=== PATIENT | female | born 1950 | race Caucasian/White ===

== ENCOUNTER 2017-04-02 13:45 | Outpatient (CLI) | payer MEDICARE | END 2017-04-02 13:46 | disposition home or self-care (01) | LOC: SC 13:45 | PROVIDERS: ATTEND Specialist | DX: R53.83 Other fatigue (principal); R51 Headache; E66.9 Obesity, unspecified | CPT/HCPCS: 99205; G0463; 99212 ==

== ENCOUNTER 2017-04-16 09:19 | Outpatient (CLI) | payer MEDICARE ==
[2017-04-16 18:49] LABS: ALBUMIN/GLOBULIN RATIO 1.3 (1.0-2.2); BILIRUBIN,TOTAL 0.6 mg/dL (0.2-1.0); BUN - BLOOD UREA NITROGEN 25 mg/dL (6-20); CALCIUM 9.4 mg/dL (8.5-10.3); CARBON DIOXIDE - CO2 26 mmol/L (21-32); CHLORIDE 102 mmol/L (101-111); CHOL/HDL RATIO 5.2 (<4.4); CHOLESTEROL 269 mg/dL; CREATININE 0.8 mg/dL (0.4-1.0); GFR - MDRD 72 (>89); GLUCOSE 139 mg/dL (70-100); HDL CHOLESTEROL 52 mg/dL; LDL/HDL RATIO 3.1 (<4.4); POTASSIUM 3.8 mmol/L (3.5-5.0); SODIUM 137 mmol/L (135-145); TOTAL PROTEIN 7.4 g/dL (6.7-8.2); TRIGLYCERIDES 286 mg/dL; VLDL CHOLESTEROL 57 mg/dL
== END 2017-04-16 09:20 | disposition home or self-care (01) ==
LOC: LAB 09:19
PROVIDERS: ATTEND Specialist
DX: K21.9 Gastro-esophageal reflux disease without esophagitis (principal)
CPT/HCPCS: 36415; 80053; 80061; 86803

== ENCOUNTER 2017-05-07 15:06 | Outpatient (CLI) | payer MEDICARE ==
--- NOTE | 2017-05-08 14:21 | DEXA Report ---
REVISED: REPORT ORIGINALLY SIGNED ON 05/08/2017@1515; ORDERS LINKED ON 2016 jll DEXA SCAN: 05/07/2017 CLINICAL INDICATION: Postmenopausal. TECHNIQUE: Dual energy x-ray absorptiometry (DXA) was performed on a [employer] system. Regions measured are the AP spine, femoral neck, and, if needed, forearm. COMPARISON: None. In accordance with the International Society for Clinical Densitometry (ISCD) guidelines, data from previous exams may be reanalyzed using current recommendations and techniques. This is done to allow a more accurate basis for comparison with the current study. FINDINGS HIP DATA: REGION BMD (g/cm/cm) T-SCORE Z-SCORE Neck 0.877 -1.2 -0.3 TOTAL 0.978 -0.2 0.3 NOTE: The femoral neck or total proximal femur, whichever is lowest, is used for classification. FOREARM DATA: REGION BMD (g/cm/cm) T-SCORE Z-SCORE 1/3 0.699 -2.0 -0.6 NOTE: The 33% radius of the nondominant forearm is used for classification. IMPRESSION 1. THE WHO CLASSIFICATION BASED ON THE INTERNATIONAL REFERENCE STANDARD: OSTEOPENIA. FRACTURE RISK: INCREASED. 2. LEFT FOREARM EVALUATION PERFORMED DUE TO HISTORY OF MULTIPLE LUMBAR SPINE FRACTURES PER THE PATIENT. RECOMMENDATION: Patients with diagnosis of osteoporosis or osteopenia should have regular bone mineral density assessment. For those eligible for Medicare, routine testing is allowed once every 2 years. Testing frequency can be increased for patients who have rapidly progressing disease or for those who are receiving medical therapy to restore bone mass. COMMENT: World Health Organization (WHO) definitions for osteoporosis and osteopenia: NORMAL BMD: T-score at -1.0 or higher, fracture risk is low. OSTEOPENIA BMD: T-score between -1.0 and -2.5, fracture risk is increased. OSTEOPOROSIS BMD: T-score at -2.5 or lower, fracture risk high. National Osteoporosis Foundation recommends: 1. Obtain adequate dietary calcium (at least 1200 mg per day) and vitamin D (400 -800 international units per day). 2. Participate, as appropriate, in regular weightbearing and muscle- strengthening exercise. 3. Avoid tobacco use and reduce alcohol and caffeine intake. 4. For more detailed information see the website at www.NOF.org. MTDD
== END 2017-05-07 15:07 | disposition home or self-care (01) ==
LOC: DI 15:06
PROVIDERS: ATTEND Specialist
DX: Z13.820 Encounter for screening for osteoporosis (principal); M85.89 Other specified disorders of bone density and structure, multiple sites; N95.8 Other specified menopausal and perimenopausal disorders
CPT/HCPCS: 77080; 77081

== ENCOUNTER 2017-05-07 15:08 | Outpatient (CLI) | payer MEDICARE ==
--- NOTE | 2017-05-10 16:04 | Mammography Report ---
DIGITAL SCREENING MAMMOGRAM: 05/07/2017 CLINICAL INDICATION: A 67-year-old with family history of breast cancer, history of benign biopsy, fo r screening. COMPARISON: 04/2013, 03/2012, 08/2011, 01/2011, 05/2010, 09/2009, 08/2009. TECHNIQUE: Routine CC and MLO projections were obtained of the breasts. FINDINGS: The breasts again demonstrate fatty replacement bilaterally. Biopsy marker in the right up per outer central breast is stable. Coarse, typically benign calcifications are present. No suspiciou s masses, clustered microcalcifications, or regions of architectural distortion are identified. IMPRESSION: BENIGN FINDINGS. RECOMMENDATION: ROUTINE ANNUAL SCREENING UNLESS OTHERWISE CLINICALLY INDICATED. BIRADS CATEGORY 2-BENIGN FINDINGS. STANDARD QUALIFYING STATEMENTS 1. This examination was reviewed with the aid of Computer-Aided Detection (CAD). 2. A negative or benign imaging report should not delay biopsy if clinically suspicious findings are present. Consider surgical consultation if warranted. More than 5% of cancers are not identified by i maging. 3. Dense breasts may obscure an underlying neoplasm. JOB #: [id number] EXT JOB #:[id number]
== END 2017-05-07 15:09 | disposition home or self-care (01) ==
LOC: DI 15:08
PROVIDERS: ATTEND Specialist
DX: Z12.31 Encounter for screening mammogram for malignant neoplasm of breast (principal); Z80.3 Family history of malignant neoplasm of breast
CPT/HCPCS: 77067

== ENCOUNTER 2017-07-25 22:45 | Outpatient (CLI) | payer MEDICARE | END 2017-07-25 22:46 | disposition home or self-care (01) | LOC: SC 22:45 | PROVIDERS: ATTEND Internal Medicine Pulmonary Disease | DX: G47.33 Obstructive sleep apnea (adult) (pediatric) (principal); R00.0 Tachycardia, unspecified | CPT/HCPCS: 95810 ==

== ENCOUNTER 2017-08-29 09:10 | Outpatient (CLI) | payer MEDICARE | END 2017-08-29 09:11 | disposition home or self-care (01) | LOC: SC 09:10 | PROVIDERS: ATTEND Nurse Practitioner Family | DX: G47.33 Obstructive sleep apnea (adult) (pediatric) (principal); R03.0 Elevated blood-pressure reading, without diagnosis of hypertension; R00.0 Tachycardia, unspecified | CPT/HCPCS: 99214; G0463; 99212 ==

== ENCOUNTER 2017-12-05 09:50 | Outpatient (CLI) | payer MEDICARE | END 2017-12-05 09:51 | disposition home or self-care (01) | LOC: SC 09:50 | PROVIDERS: ATTEND Nurse Practitioner Family | DX: G47.33 Obstructive sleep apnea (adult) (pediatric) (principal); G47.00 Insomnia, unspecified; R03.0 Elevated blood-pressure reading, without diagnosis of hypertension | CPT/HCPCS: 99214; G0463; 99212 ==

== ENCOUNTER 2018-05-22 14:31 | Outpatient (CLI) | payer MEDICARE ==
--- NOTE | 2018-05-23 13:15 | MRI Report ---
Reason: PAIN IN LEFT SHOULDER Procedure Date: 05/22/2018 Accession Number: [id number] / [id number] Procedure: MRI - Shoulder LT W/O CPT Code: FULL RESULT: EXAM: LEFT SHOULDER MRI WITHOUT CONTRAST EXAM DATE: 05/22/2018 03:05 PM. CLINICAL HISTORY: Pain in left shoulder. COMPARISON: None. TECHNIQUE: Multiplanar, multisequence T1-weighted and fluid-sensitive sequences of the shoulder without contrast. Other: None. FINDINGS: Acromioclavicular Region: The acromion is type II. Postsurgical changes of distal clavicle excision. The coracoacromial and coracoclavicular ligaments are intact. Minimal subacromial/subdeltoid bursal fluid. Glenohumeral Region: Minimal superior subluxation of the humeral head. Large joint effusion with synovitis and fluid extending into the subcoracoid region. Diffuse full-thickness cartilage loss with moderate to severe mechanical wear at the articular surfaces and large osteophytes. The glenohumeral ligaments and joint capsule are unremarkable. Bone Marrow: No fracture or bone lesion. Mild reactive edema in the humeral head. Labrum: Diffuse degenerative maceration, most prominent posteriorly. Musculature/Rotator Cuff: Mild supraspinatus tendinopathy. Focal deep partial thickness intrasubstance tear at the insertion posterior fibers extending to the myotendinous junction. Mild infraspinatus tendinopathy with shallow partial-thickness intrasubstance tear at the posterior insertion. Teres minor tendon is intact. Moderate subscapularis tendinopathy with deep partial thickness undersurface tear at the superior insertion. Mild fatty streaking throughout the musculature. No edema. No edema or fatty atrophy. Biceps Tendon: Medial subluxation at the superior aspect of the groove where there is moderate to severe thickening. Large amount of lobulated fluid in the tendon sheath. Other: The subcutaneous soft tissues are unremarkable. IMPRESSION: 1. Severe glenohumeral degenerative change with large joint effusion and synovitis. 2. Degenerative maceration of the labrum. 3. Medial subluxation of the biceps tendon from the bicipital groove with moderate to severe tendinopathy and tenosynovitis. 4. Mild supraspinatus tendinopathy with focal deep partial thickness intrasubstance tear posterior fibers. 5. Mild infraspinatus tendinopathy with shallow partial-thickness intrasubstance tear posterior fibers. 6. Moderate subscapularis tendinopathy with deep partial thickness undersurface tear superior insertion. 7. Postsurgical changes of distal clavicle excision. [facility] MUSCULOSKELETAL RADIOLOGY SECTION
--- NOTE | 2018-05-23 13:15 | CT Report ---
Reason: PAIN IN LEFT SHOULDER Procedure Date: 05/22/2018 Accession Number: [id number] / [id number] Procedure: CT - Upper Extremity Left W/O CPT Code: FULL RESULT: EXAM: LEFT SHOULDER CT WITHOUT CONTRAST EXAM DATE: 05/22/2018 04:27 PM. CLINICAL HISTORY: Pain in left shoulder. COMPARISON: MRI 05/22/2018. TECHNIQUE: Thin-section axial images were acquired of the shoulder without contrast. Post-processing: Oblique coronal and sagittal reformats. Other: None. In accordance with CT protocol optimization, one or more of the following dose reduction techniques were utilized for this exam: automated exposure control, adjustment of mA and/or KV based on patient size, or use of iterative reconstructive technique. FINDINGS: Bones: No acute fracture. Fragmented osteophytes at the posterior superior and posterior inferior glenoid measuring 0.7 cm and 1.3 cm. Acromioclavicular Region: Type II acromion. Postsurgical changes of distal clavicle excision. Glenohumeral Joint: Severe degenerative change with complete joint space loss, large osteophytes, and moderate to severe mechanical wear at the articular surfaces. Mechanical wear at the articular surface of the glenoid results and posterior angulation of the articular surface relative to the scapular spine measuring 12 degrees superiorly, 3 degrees at the mid portion, and 5 degrees inferiorly. Large joint effusion. Mild posterior superior subluxation of the humeral head. Musculature: Minimal fatty streaking throughout the musculature. No focal volume loss. Limited evaluation for muscle edema on CT. Other: Calcified 3 mm nodule on the left lower lobe. Mild to moderate atherosclerosis in the coronary arteries and aortic arch. No large lymph node in the left axilla. Moderate to severe degenerative disk changes partially visualized in the thoracic spine. IMPRESSION: 1. Severe degenerative change glenohumeral joint with large joint effusion. 2. Mild posterior superior subluxation of the humeral head. 3. Moderate to severe mechanical wear at the articular surfaces glenohumeral joint with posterior angulation of the glenoid. [facility] MUSCULOSKELETAL [facility]IOLOGY SECTION
== END 2018-05-22 14:32 | disposition home or self-care (01) ==
LOC: DI 14:31
PROVIDERS: ATTEND Orthopaedic Surgery
DX: M19.012 Primary osteoarthritis, left shoulder (principal); M65.812 Other synovitis and tenosynovitis, left shoulder; M25.412 Effusion, left shoulder; S43.022A Posterior subluxation of left humerus, initial encounter; S43.492A Other sprain of left shoulder joint, initial encounter; M75.102 Unspecified rotator cuff tear or rupture of left shoulder, not specified as traumatic; M51.34 Other intervertebral disc degeneration, thoracic region

== ENCOUNTER 2018-06-18 09:44 | Outpatient (CLI) | payer MEDICARE ==
[2018-06-18 17:40] LABS: BASOPHILS # (AUTO) 0.1 10^3/uL (0.0-0.1); BASOPHILS % (AUTO) 0.6 %; EOSINOPHILS # (AUTO) 0.4 10^3/uL (0.0-0.7); EOSINOPHILS % (AUTO) 4.5 %; HGB - HEMOGLOBIN 14.7 g/dL (12.0-16.0); LYMPHOCYTES % (AUTO) 42.3 %; MEAN CORPUSCULAR HEMOGLOBIN 31.6 pg (27.0-31.0); MEAN CORPUSCULAR HGB CONC 32.6 g/dL (32.0-36.0); MEAN CORPUSCULAR VOLUME 96.9 fL (81.0-99.0); MEAN PLATELET VOLUME 7.9 fL (7.9-10.8); MONOCYTES # (AUTO) 0.8 10^3/uL (0.0-1.0); NEUTROPHILS # (AUTO) 4.2 10^3/uL (1.5-6.6); NEUTROPHILS % (AUTO) 44.6 %; PLT - PLATELET COUNT 482 10^3/uL (130-450); RED BLOOD COUNT 4.65 10^6/uL (4.20-5.40); RED CELL DISTRIBUTION WIDTH 14.1 % (12.0-15.0); WHITE BLOOD COUNT 9.5 x10^3/uL (4.8-10.8)
== END 2018-06-18 09:45 | disposition home or self-care (01) ==
LOC: LAB.F 09:44
PROVIDERS: ATTEND Orthopaedic Surgery
DX: M19.012 Primary osteoarthritis, left shoulder (principal)
CPT/HCPCS: 36415; 80051; 85025

== ENCOUNTER 2018-11-17 13:35 | Emergency (ER) | payer MEDICARE, OTHER ==
[2018-11-17] MEDS ORDERED: BUFFERED LIDOCAINE 10 ML SYRINGE SUBQ STA (14:24)
--- NOTE | 2018-11-17 15:03 | CT Report ---
Reason: fall scalp lac dizziness Procedure Date: 11/17/2018 Accession Number: [id number] / [id number] Procedure: CT - HEAD WO CPT Code: FULL RESULT: EXAM: CT HEAD EXAM DATE: 11/17/2018 02:39 PM. CLINICAL HISTORY: Fall scalp lac dizziness. COMPARISON: None. TECHNIQUE: Multiaxial CT images were obtained from the foramen magnum to the vertex. Reformats: Sagittal and coronal. IV contrast: None. In accordance with CT protocol optimization, one or more of the following dose reduction techniques were utilized for this exam: automated exposure control, adjustment of mA and/or KV based on patient size, or use of iterative reconstructive technique. FINDINGS: Parenchyma: No intraparenchymal hemorrhage. No evidence of mass, midline shift, or CT findings of infarction. Renee-white differentiation is distinct. Extraaxial Spaces: Normal for age. No subdural or epidural collections identified. Ventricles: Normal in size and position. Sinuses and Orbits: Imaged paranasal sinuses, orbits, and mastoids show no significant abnormality. Bones: No evidence of fracture or calvarial defect. Other: Left frontal region scalp laceration and associated hematoma. No unexpected radiopaque foreign bodies. Status post bilateral cataract procedures. IMPRESSION: 1. Frontal scalp soft tissue laceration. No radiopaque foreign bodies. No calvarial fracture. 2. No acute intracranial abnormality. [facility]
--- NOTE | 2018-11-17 15:08 | CT Report ---
Reason: fall scalp lac neck pain S/P fusion Procedure Date: 11/17/2018 Accession Number: [id number] / [id number] Procedure: CT - CERVICAL SPINE WO CPT Code: FULL RESULT: EXAM: CT CERVICAL SPINE WITHOUT CONTRAST DATE: 11/17/2018 02:39 PM. HISTORY: Fall scalp laceration. Neck pain. Status post fusion. COMPARISONS: None. TECHNIQUE: Thin-section axial images were acquired of the cervical spine without contrast. Post-processing: Coronal and sagittal reformats. Other: None. In accordance with CT protocol optimization, one or more of the following dose reduction techniques were utilized for this exam: automated exposure control, adjustment of mA and/or KV based on patient size, or use of iterative reconstructive technique. FINDINGS: Alignment: Gentle convex to the right curvature of the mid cervical spine. No spondylolisthesis. Bones: No fracture or bone lesion. Interspace Levels/Facets: C1-C2: Unremarkable. C2-C3: Unremarkable. C3-C4: Unremarkable. C4-C5: Unremarkable. C5-C6: Moderate disk narrowing with a small disk osteophyte complex and uncovertebral joint hypertrophy without significant central canal or foraminal stenosis. C6-C7: Moderate disk narrowing. Mild bilateral facet arthropathy. No significant central canal or foraminal stenosis. C7-T1: Mild disk narrowing. No significant central canal or foraminal stenosis. Musculature: Normal. No fatty atrophy. Other: The paravertebral and prevertebral soft tissues are unremarkable. The lung apices are clear. Coarse left thyroid calcification. IMPRESSION: 1. Multilevel degenerative disk disease most severe at C5-C6, C6-C7, and C7-T1. No significant foraminal or central canal stenosis. 2. No acute fracture. No paraspinal hematoma. [facility]
--- NOTE | 2018-11-17 15:15 | ED Physician Documentation ---
PD HPI HEAD INJURY - Stated complaint Stated Complaint: HEAD INJ/LAC - Chief complaint Chief Complaint: Trauma Hd/Nk - History obtained from History obtained from: Patient, Family - History of Present Illness Mechanism of head injury: Fell Where head injury occurred: Home Timing - onset: Today Location of injury: Front Quality of pain: Pain Associated symptoms: Neck pain. No: LOC, AMS, Amnesia, Nausea / vomiting, Paresthesias, Seizures, Ear drainage, Nasal drainage Symptoms improve with: Rest, Position Symptoms worsen with: Palpation, Movement Contributing factors: No: Anticoagulated Similar symptoms before: Has not had sx before Recently seen: Not recently seen - Additional information Additional information: 68-year-old previously well female with a prior history of cervical fusion was in her yard attempting to clean up her small man-made pond that does not have a recirculating filter when she fell into the pond and struck her head against a rock. She did not get knocked out she has a significant laceration to the scalp and she has gone into her house and showered, washed her hair and cleansed the wound. She has come to the emergency department now for suturing. She does have some pain in her neck. She denies any numbness or tingling in her extremities. Review of Systems Constitutional: denies: Fever Eyes: denies: Decreased vision Ears: denies: Ear pain Nose: denies: Rhinorrhea / runny nose, Congestion Throat: denies: Oral lesions / sores, Sore throat Cardiac: denies: Chest pain / pressure, Palpitations Respiratory: denies: Dyspnea, Cough GI: denies: Abdominal Pain, Nausea, Vomiting : denies: Dysuria, Frequency Skin: denies: Rash Musculoskeletal: reports: Neck pain, Back pain. denies: Extremity pain Neurologic: denies: Generalized weakness, Focal weakness, Numbness PD PAST MEDICAL HISTORY - Past Medical History Cardiovascular: None Respiratory: None Endocrine/Autoimmune: None GI: GERD, GI bleed, Ulcers, Hiatal hernia RAILROAD WATCHMAN: None : None HEENT: None Psych: Depression Musculoskeletal: Osteoarthritis Derm: Psoriasis - Past Surgical History Past Surgical History: Yes General: Appendectomy, Bowel surgery, Splenectomy, Colonoscopy, Other Ortho: Spine surgery /RAILROAD WATCHMAN: Tubal ligation HEENT: Cataracts - Present Medications Home Medications: Ambulatory Orders Medication Instructions Recorded Confirmed Cyclobenzaprine [Flexeril] 10 mg PO TID PRN 04/15/14 06/26/17 DiphenhydrAMINE ELIXIR [Benadryl] 25 mg PO DAILY 10/06/13 12/17/16 Docusate Sodium [Stool Softener] 200 mg PO TID 10/06/13 12/17/16 Loratadine [Claritin] 10 mg PO DAILY 10/06/13 12/17/16 Melatonin/Pyridoxine [Melatonin 3 6 mg PO HS 10/06/13 12/17/16 mg Tablet] Nortriptyline [Pamelor] 30 mg PO HS 10/06/13 12/17/16 RX: Omeprazole 20 mg PO BID 10/06/13 12/17/16 RX: Potassium Gluconate 595 mg PO DAILY 10/06/13 12/17/16 RX: Vitamin B Complex 1 each PO DAILY 10/06/13 12/17/16 Hydrocodone/Acetaminophen [Vicodin 0.5 - 1 tab PO Q4H PRN 02/15/15 12/17/16 Es 7.5-300 mg Tablet] Lidocaine Patch 5% [Lidoderm Patch] 1 patch TOP DAILY 02/15/15 12/17/16 Cephalexin [Keflex] 500 mg PO Q6H #20 capsule 11/17/18 - Allergies Allergies/Adverse Reactions: Allergies Allergy/AdvReac Type Severity Reaction Status Date / Time codeine Allergy Rash Verified 11/17/18 13:45 atorvastatin AdvReac Cramps Verified 11/17/18 13:45 NSAIDS (Non-Steroidal AdvReac Unknown Verified 11/17/18 13:45 Anti-Inflamma - Social History Does the pt smoke?: No Smoking Status: Never smoker Does the pt drink ETOH?: Yes Does the pt have substance abuse?: No - Immunizations Immunizations are current?: Yes - POLST Patient has POLST: No PD ED PE NORMAL - Vitals Vital signs reviewed: Yes (tachy and hypertensive ) - General General: No acute distress, Well developed/nourished - HEENT HEENT: PERRL, EOMI, Ears normal, Moist mucous membranes, Pharynx benign, Other (7cm jagged laceration to the anterior scalp midline. ) - Neck Neck: Supple, no meningeal sign, Other (bony point tendernss to the cervical spine mid spine and to the right ) - Cardiac Cardiac: RRR, No murmur - Respiratory Respiratory: No respiratory distress, Clear bilaterally - Abdomen Abdomen: Soft, Non tender - Back Back: No CVA TTP, No spinal TTP - Derm Derm: Normal color, Warm and dry - Extremities Extremities: No deformity, No edema - Neuro Neuro: Alert and oriented X 3, auto painter helper 2-12 intact, No motor deficit, No sensory deficit, Normal speech Eye Opening: Spontaneous Motor: Obeys Commands Verbal: Oriented GCS Score: 15 - Psych Psych: Normal mood, Normal affect Results - Vitals Vitals: Vital Signs - 24 hr 11/17/18 11/17/18 11/17/18 13:40 13:52 16:15 Temperature 36.7 C Heart Rate 117 H 78 Respiratory 18 18 18 Rate Blood Pressure 147/97 H 137/78 H O2 Saturation 93 99 Oxygen O2 Source Room air - Rads (name of study) CT cervical spine without Radiology: Prelim report reviewed (Impression: 1. Multilevel degenerative disc disease most severe at C5-C6, C6-C7 and C7-T1. No significant foraminal or central canal stenosis. 2 No acute fracture. No para spinal hematoma.), EMP read indepedently, See rad report CT head without Radiology: Prelim report reviewed (Impression: 1. Frontal scalp soft tissue laceration. No radiographic foreign bodies. No clot with serial fracture. No acute intracranial abnormality.), EMP read indepedently, See rad report Procedures - Laceration (location) scalp Length in cm: 7 Wound type: Stellate, Irregular, Clean Neurovascular status: Sensory intact, Motor intact, Vascular intact Anesthesia: Lidocaine 1%, Marcaine 0.5%, With bicarb Wound Preparation: Hibiclens, Irrigated copiously NS, Wound explored, To the base Skin layer closure: Nylon, Interrupted, Size #-0 - enter number ([phone]) Other: No complications, Neurovascular intact, Dressing applied, Tetanus booster given Complexity: Simple PD MEDICAL DECISION MAKING - ED course Complexity details: reviewed results, re-evaluated patient, considered differential, d/w patient, d/w family ED course: 68-year-old female with a long scalp laceration from a direct contusion to the scalp from fall does not tolerate suturing well as she does not have good anesthetic with lidocaine or bupivacaine. This was a potentially significantly contaminated wound and we will place the patient on some prophylactic Keflex. The patient does have some increased pain in her neck and lower back and may require more narcotic than her usual dose and she is not due to refill until November 22. I have asked her to follow-up with her primary should she require more narcotic. Departure - Departure Disposition: 01 Home, Self Care Clinical Impression: Scalp laceration Condition: Stable Instructions: ED Laceration Scalp Stitch Or Stap Follow-Up: SILVINO HARDIN [Primary Care Provider] - Prescriptions: Cephalexin [Keflex] 500 mg PO Q6H #20 capsule Comments: You are likely to have additional pain and may exceed your allotted amount of hydrocodone. Follow-up with your primary care doctor about further pain medication as needed. Discharge Date/Time: 11/17/18 16:15
[2018-11-17] MEDS ORDERED: BUPIVACAINE 0.5% PF 10 ML VIAL SUBQ STA (15:32)
[2018-11-17] MEDS ORDERED: TETANUS/DIPHTHERIA/PERTUSSIS 0.5 ML SYRINGE IM ONE (16:02)
[2018-11-17 16:17] VITALS: BP 137/78
== END 2018-11-17 16:15 | disposition home or self-care (01) ==
LOC: ED 13:35
DX: S01.01XA Laceration without foreign body of scalp, initial encounter (principal); W17.89XA Other fall from one level to another, initial encounter; Y93.H9 Activity, other involving exterior property and land maintenance, building and construction; Y92.007 Garden or yard of unspecified non-institutional (private) residence as the place of occurrence of the external cause; M50.33 Other cervical disc degeneration, cervicothoracic region; M54.5 Low back pain; Z23 Encounter for immunization
CPT/HCPCS: 12002; 70450; 72125; 90471; 99283

== ENCOUNTER 2019-03-06 12:51 | Outpatient (CLI) | payer MEDICARE, OTHER ==
--- NOTE | 2019-03-08 01:26 | XRAY Report ---
Reason: LT FOOT PAIN Procedure Date: 03/06/2019 Accession Number: [id number] / [id number] Procedure: XRS - Foot 3 View LT CPT Code: FULL RESULT: EXAM: LEFT FOOT RADIOGRAPHY EXAM DATE: 03/06/2019 01:00 PM. CLINICAL HISTORY: LT FOOT PAIN. COMPARISON: FOOT 3 VIEW LT 10/21/2015 2:15 PM. TECHNIQUE: 3 views. FINDINGS: Bones: Normal. No fractures or bone lesions. Joints: Normal. No subluxations. Soft Tissues: Normal. No soft tissue swelling. IMPRESSION: Normal foot radiography. [facility]
== END 2019-03-06 12:52 | disposition home or self-care (01) ==
LOC: DI.S 12:51
PROVIDERS: ATTEND Physician Assistant Medical
DX: M79.672 Pain in left foot (principal)

== ENCOUNTER 2019-07-16 11:10 | Outpatient (CLI) | payer MEDICARE, OTHER ==
--- NOTE | 2019-07-16 17:14 | XRAY Report ---
Reason: ACUTE BACTERIAL BROCHITIS Procedure Date: 07/16/2019 Accession Number: [id number] / [id number] Procedure: XRS - Chest 2 View X-Ray CPT Code: 69736 Final Report FULL RESULT: EXAM: CHEST RADIOGRAPHY EXAM DATE: 07/16/2019 11:35 AM. CLINICAL HISTORY: ACUTE BACTERIAL BRONCHITIS. COMPARISON: None. TECHNIQUE: 2 views. FINDINGS: Lungs/Pleura: No focal opacities evident. No pleural effusion. No pneumothorax. Normal volumes. Mediastinum: Heart and mediastinal contours are unremarkable. Other: Left shoulder arthroplasty changes are seen. IMPRESSION: No acute cardiopulmonary abnormality demonstrated. [facility]
[2019-07-16 18:50] LABS: BASOPHILS # (AUTO) 0.1 10^3/uL (0.0-0.1); EOSINOPHILS # (AUTO) 0.2 10^3/uL (0.0-0.7); EOSINOPHILS % (AUTO) 2.3 %; HGB - HEMOGLOBIN 14.3 g/dL (12.0-16.0); LYMPHOCYTES # (AUTO) 2.8 10^3/uL (1.5-3.5); LYMPHOCYTES % (AUTO) 36.2 %; MEAN CORPUSCULAR HEMOGLOBIN 29.4 pg (27.0-31.0); MEAN CORPUSCULAR HGB CONC 31.8 g/dL (32.0-36.0); MEAN CORPUSCULAR VOLUME 92.4 fL (81.0-99.0); MEAN PLATELET VOLUME 9.7 fL (7.9-10.8); MONOCYTES # (AUTO) 0.5 10^3/uL (0.0-1.0); MONOCYTES % (AUTO) 6.6 %; NEUTROPHILS # (AUTO) 4.1 10^3/uL (1.5-6.6); NEUTROPHILS % (AUTO) 53.3 %; PLT - PLATELET COUNT 478 10^3/uL (130-450); RED BLOOD COUNT 4.86 10^6/uL (4.20-5.40); RED CELL DISTRIBUTION WIDTH 16.2 % (12.0-15.0); WHITE BLOOD COUNT 7.8 x10^3/uL (4.8-10.8)
[2019-07-16 18:51] LABS: ALBUMIN 3.8 g/dL (3.2-5.5); BILIRUBIN,TOTAL 0.6 mg/dL (0.2-1.0); CALCIUM 9.2 mg/dL (8.5-10.3); CREATININE 0.9 mg/dL (0.4-1.0); TOTAL PROTEIN 7.6 g/dL (6.7-8.2)
== END 2019-07-16 11:11 | disposition home or self-care (01) ==
LOC: DI.S 11:10
PROVIDERS: ATTEND Registered Nurse
DX: J20.9 Acute bronchitis, unspecified (principal); I10 Essential (primary) hypertension; Z86.2 Personal history of diseases of the blood and blood-forming organs and certain disorders involving the immune mechanism
CPT/HCPCS: 36415; 71046; 80053; 82607; 82746; 85025

== ENCOUNTER 2019-10-29 15:22 | Outpatient (CLI) | payer MEDICARE, OTHER ==
[2019-10-29 15:55] LABS: BASOPHILS % (AUTO) 0.9 %; EOSINOPHILS % (AUTO) 1.4 %; HGB - HEMOGLOBIN 10.5 g/dL (12.0-16.0); LYMPHOCYTES % (AUTO) 33.7 %; MEAN CORPUSCULAR HEMOGLOBIN 28.8 pg (27.0-31.0); MEAN CORPUSCULAR HGB CONC 31.9 g/dL (32.0-36.0); MEAN CORPUSCULAR VOLUME 90.4 fL (81.0-99.0); MEAN PLATELET VOLUME 8.4 fL (7.9-10.8); MONOCYTES % (AUTO) 8.9 %; NEUTROPHILS % (AUTO) 54.7 %; PLT - PLATELET COUNT 656 10^3/uL (130-450); RED BLOOD COUNT 3.64 10^6/uL (4.20-5.40); RED CELL DISTRIBUTION WIDTH 13.8 % (12.0-15.0); WHITE BLOOD COUNT 9.4 x10^3/uL (4.8-10.8)
[2019-10-29 16:07] LABS: ABNORMAL LYMPHS % (MANUAL) 0 %; BAND NEUTROPHILS % (MANUAL) 0 %
[2019-10-29 16:10] LABS: DIFFERENTIAL COMMENT MANUAL DIFFERENTIAL; EOSINOPHILS # (MANUAL) 0.1 10^3/uL (0-0.7); LYMPHOCYTES # (MANUAL) 2.4 10^3/uL (1.5-3.5); LYMPHOCYTES % (MANUAL) 26 %; MONOCYTES # (MANUAL) 0.5 10^3/uL (0.0-1.0); PLATELET ESTIMATE, MANUAL INCREASED (>450,000) (NORMAL); PLATELET MORPHOLOGY B (NORMAL); RBC MORPHOLOGY (MULTIPLE) B (NORMAL)
[2019-10-29 16:11] LABS: CRP - C-REACTIVE PROTEIN 1.1 mg/dL (0-1.0)
== END 2019-10-29 15:23 | disposition home or self-care (01) ==
LOC: LAB 15:22
PROVIDERS: ATTEND Nurse Practitioner Family
DX: D47.3 Essential (hemorrhagic) thrombocythemia (principal)
CPT/HCPCS: 36415; 82728; 83540; 84466; 85025; 85651; 86140

== ENCOUNTER 2019-12-10 12:50 | Outpatient (CLI) | payer MEDICARE, OTHER | END 2019-12-10 12:51 | disposition home or self-care (01) | LOC: EMS 12:50 | PROVIDERS: ATTEND Surgery | DX: R55 Syncope and collapse (principal) | CPT/HCPCS: A0425; A0429 ==

== ENCOUNTER 2019-12-10 13:07 | Emergency (ER) | payer MEDICARE, OTHER ==
[2019-12-10 14:08] LABS: BASOPHILS # (AUTO) 0.1 10^3/uL (0.0-0.1); BASOPHILS % (AUTO) 1.1 %; EOSINOPHILS # (AUTO) 0.1 10^3/uL (0.0-0.7); EOSINOPHILS % (AUTO) 0.6 %; LYMPHOCYTES # (AUTO) 1.9 10^3/uL (1.5-3.5); LYMPHOCYTES % (AUTO) 21.1 %; MEAN CORPUSCULAR HEMOGLOBIN 24.5 pg (27.0-31.0); MEAN CORPUSCULAR HGB CONC 30.3 g/dL (32.0-36.0); MEAN CORPUSCULAR VOLUME 80.7 fL (81.0-99.0); MEAN PLATELET VOLUME 8.3 fL (7.9-10.8); MONOCYTES # (AUTO) 0.8 10^3/uL (0.0-1.0); MONOCYTES % (AUTO) 9.1 %; NEUTROPHILS % (AUTO) 67.7 %; PLT - PLATELET COUNT 624 10^3/uL (130-450); RED BLOOD COUNT 3.68 10^6/uL (4.20-5.40); RED CELL DISTRIBUTION WIDTH 16.4 % (12.0-15.0); WHITE BLOOD COUNT 8.9 x10^3/uL (4.8-10.8)
[2019-12-10] MEDS ORDERED: SODIUM CHLORIDE 0.9% 1,000 ML IV STA ×2 (14:11→14:41)
[2019-12-10 14:12] LABS: ALBUMIN 3.9 g/dL (3.2-5.5); ALBUMIN/GLOBULIN RATIO 1.1 (1.0-2.2); BILIRUBIN,TOTAL 0.6 mg/dL (0.2-1.0); CALCIUM 9.7 mg/dL (8.5-10.3); CREATININE 0.8 mg/dL (0.4-1.0); TOTAL PROTEIN 7.3 g/dL (6.7-8.2)
--- NOTE | 2019-12-10 14:52 | ED Physician Documentation ---
History of Present Illness - Stated complaint Stated Complaint: DIZZY - Chief complaint Chief Complaint: Neuro - History obtained from History obtained from: Patient, Family - History of Present Illness Timing: Today Pain level max: 0 Pain level now: 0 - Additonal information Additional information: 69-year-old female presents to the emergency department stating that she had a syncopal event today that was witnessed by family. They say it lasted less than a second. No head, neck, back pain. Does have a history of anemia and is on oral iron. She states that she has a gastric bleeding ulcer as well. She states that she has an endoscopy tomorrow at [facility] in [place]. No chest pain. No shortness of breath. Nothing makes it better or worse. She has been on a liquid diet the last few days as well. States that she does feel dehydrated. No cardiac history. Has had syncopal events in the past similar to this. Review of Systems Ten Systems: 10 systems reviewed and negative Constitutional: denies: Fever, Chills Nose: denies: Rhinorrhea / runny nose, Congestion Throat: denies: Sore throat Respiratory: denies: Cough GI: denies: Nausea, Vomiting Skin: denies: Rash Musculoskeletal: denies: Neck pain, Back pain Neurologic: denies: Headache PD PAST MEDICAL HISTORY - Past Medical History Past Medical History: Yes Cardiovascular: None Respiratory: None Neuro: None Endocrine/Autoimmune: None GI: GERD, GI bleed, Ulcers, Hiatal hernia CREDIT RISK ANALYTICS MANAGER: None : None HEENT: None Psych: Depression Musculoskeletal: Osteoarthritis Derm: Psoriasis - Past Surgical History Past Surgical History: Yes General: Appendectomy, Bowel surgery, Splenectomy, Colonoscopy, Other Ortho: Spine surgery /CREDIT RISK ANALYTICS MANAGER: Tubal ligation HEENT: Cataracts - Present Medications Home Medications: Ambulatory Orders Medication Instructions Recorded Confirmed Cyclobenzaprine [Flexeril] 10 mg PO TID PRN 10/06/13 12/17/16 DiphenhydrAMINE ELIXIR [Benadryl] 25 mg PO DAILY 10/06/13 12/17/16 Docusate Sodium [Stool Softener] 200 mg PO TID 10/06/13 12/17/16 Loratadine [Claritin] 10 mg PO DAILY 10/06/13 12/17/16 Melatonin/Pyridoxine [Melatonin 3 6 mg PO HS 10/06/13 12/17/16 mg Tablet] Nortriptyline [Pamelor] 30 mg PO HS 10/06/13 12/17/16 Omeprazole 20 mg PO BID 10/06/13 12/17/16 Potassium Gluconate 595 mg PO DAILY 10/06/13 12/17/16 Vitamin B Complex 1 each PO DAILY 10/06/13 12/17/16 Hydrocodone/Acetaminophen [Vicodin 0.5 - 1 tab PO Q4H PRN 02/15/15 12/17/16 Es 7.5-300 mg Tablet] Lidocaine Patch 5% [Lidoderm Patch] 1 patch TOP DAILY 02/15/15 12/17/16 Cephalexin [Keflex] 500 mg PO Q6H #20 capsule 11/17/18 - Allergies Allergies/Adverse Reactions: Allergies Allergy/AdvReac Type Severity Reaction Status Date / Time codeine Allergy Rash Verified 12/10/19 13:25 atorvastatin AdvReac Cramps Verified 12/10/19 13:25 NSAIDS (Non-Steroidal AdvReac Unknown Verified 12/10/19 13:25 Anti-Inflamma - Social History Does the pt smoke?: No Smoking Status: Never smoker Does the pt drink ETOH?: Yes Does the pt have substance abuse?: No - Immunizations Immunizations are current?: Yes - POLST Patient has POLST: No PD ED PE NORMAL - Vitals Vital signs reviewed: Yes - General General: Alert and oriented X 3, No acute distress - HEENT HEENT: Moist mucous membranes - Neck Neck: Supple, no meningeal sign - Cardiac Cardiac: RRR - Respiratory Respiratory: No respiratory distress, Clear bilaterally - Abdomen Abdomen: Soft, Non tender, Non distended - Derm Derm: Warm and dry - Extremities Extremities: No edema, No calf tenderness / cord - Neuro Neuro: Alert and oriented X 3 - Psych Psych: Normal mood, Normal affect Results - Vitals Vitals: Vital Signs - 24 hr 12/10/19 12/10/19 13:21 16:23 Temperature 37.4 C 36.7 C Heart Rate 77 62 Respiratory 14 18 Rate Blood Pressure 139/76 H 116/81 H O2 Saturation 97 99 Oxygen O2 Source Room air - EKG (time done) 1418 Rate: Rate (enter#) (73) Rhythm: NSR [place]: Normal Intervals: Normal NH QRS: Normal Ischemia: Normal ST segments - Labs Labs: Laboratory Tests 12/10/19 12/10/19 12/10/19 13:55 13:55 13:55 WBC 8.9 RBC 3.68 L Hgb 9.0 L Hct 29.7 L MCV 80.7 L MCH 24.5 L MCHC 30.3 L RDW 16.4 H Plt Count 624 H MPV 8.3 Neut # (Auto) 6.0 Lymph # (Auto) 1.9 [place] # (Auto) 0.8 Eos # (Auto) 0.1 Baso # (Auto) 0.1 Absolute Nucleated RBC 0.00 Nucleated RBC % 0.0 Sodium 132 L Potassium 4.3 Chloride 97 L Carbon Dioxide 24 Anion Gap 11.0 BUN 29 H Creatinine 0.8 Estimated GFR (MDRD) 71 L Glucose 147 H Calcium 9.7 Total Bilirubin 0.6 AST 24 ALT 20 Alkaline Phosphatase 64 Troponin I High Sens 5.9 Total Protein 7.3 Albumin 3.9 Globulin 3.4 Albumin/Globulin Ratio 1.1 Lipase 25 PD MEDICAL DECISION MAKING - ED course Complexity details: reviewed results, re-evaluated patient, considered differential (No ST elevation [place], no aortic dissection, no PE, no tension pneumothorax, no aortic aneurysm), d/w patient ED course: 69-year-old female presents to the emergency department after syncopal event today. She does have anemia and is having an endoscopy tomorrow for a bleeding gastric ulcer. She feels better after IV fluids. She is on a PPI already. No arrhythmias on telemetry. No evidence of cardiac etiology. We will have her follow-up with her doctor for further care. Patient counseled regarding signs and symptoms for which I believe and urgent re-evaluation would be necessary. Patient with good understanding of and agreement to plan and is comfortable going home at this time This document was made in part using voice recognition software. While efforts are made to proofread this document, sound alike and grammatical errors may occur. Departure - Departure Disposition: 01 Home, Self Care Clinical Impression: Syncope Qualifiers: Syncope type: unspecified Qualified Code(s): R55 - Syncope and collapse Anemia Qualifiers: Anemia type: unspecified type Qualified Code(s): D64.9 - Anemia, unspecified Condition: Good Instructions: ED Fainting Unkn Cause Follow-Up: Oswaldo Hernandez MD [Primary Care Provider] - Within 3 Days Comments: Follow-up with [facility] in [place] tomorrow for your upper endoscopy. Return if you worsen. Drink plenty of fluids at home. Discharge Date/Time: 12/10/19 17:08
[2019-12-10 16:24] VITALS: BP 116/81
== END 2019-12-10 17:08 | disposition home or self-care (01) ==
LOC: EDUNIT# → ED 13:07
DX: R55 Syncope and collapse (principal); D64.9 Anemia, unspecified; K25.4 Chronic or unspecified gastric ulcer with hemorrhage
CPT/HCPCS: 36415; 80053; 83690; 84484; 85025; 93005; 99284

== ENCOUNTER 2021-05-30 12:21 | Outpatient (CLI) | payer MEDICARE, OTHER ==
--- NOTE | 2021-05-30 12:53 | CT Report ---
PROCEDURE: UPPER EXTREMITY WO - RT INDICATIONS: PAIN IN RIGHT SHOULDER TECHNIQUE: Noncontrast 3 mm axial sections acquired of the right shoulder, with coronal and sagittal reformats. COMPARISON: None. FINDINGS: Image quality: Excellent. BONES/JOINT: No acute, displaced fracture. Mild arthrosis of the AC joint with osteophytosis. Preservation of the glenohumeral joint space. SOFT TISSUES: No significant abnormality. Calcified granuloma in the posterior right upper lobe. IMPRESSION: 1. Mild arthrosis of the AC joint. Reviewed by: Dudley Salazar MD on 05/30/2021 12:52 PM [facility] Approved by: Dudley Salazar MD on 05/30/2021 12:52 PM [facility] Station ID: [id number]
== END 2021-05-30 12:22 | disposition home or self-care (01) ==
LOC: DI 12:21
PROVIDERS: ATTEND Nurse Practitioner Family
DX: M19.011 Primary osteoarthritis, right shoulder (principal)

== ENCOUNTER 2021-08-22 13:17 | Outpatient (CLI) | payer MEDICARE, OTHER ==
--- NOTE | 2021-08-23 12:08 | Mammography Report ---
BILATERAL DIGITAL SCREENING MAMMOGRAM 3D/2D: 08/22/2021 CLINICAL: Routine screening. Family history of breast cancer. Comparison is made to exams dated: 05/07/2017 mammogram, 05/11/2013 mammogram, and 04/08/2012 mammog [facility]. The tissue of both breasts is predominantly fatty. There are benign calcifications in both breasts. There also is a biopsy clip in the right breast. No significant masses, calcifications, or other findings are seen in either breast. There has been no significant interval change. IMPRESSION: BENIGN There is no mammographic evidence of malignancy. A 1 year screening mammogram is recommended. This exam was interpreted at Station ID: [id number]. NOTE: For mammograms, a report in lay terms will be sent to the patient. Approximately 15% of breast malignancies will not be visualized mammographically. In the management of a palpable breast mass, a negative mammogram must not discourage biopsy of a clinically suspicious lesion. Electronically Signed By: Douglas donato/wing:08/22/2021 17:17:56 ACR BI-RADS Category 2: Benign Finding(s) 3342F PARENCHYMAL PATTERN: (F) - The breast(s) demonstrate(s) diffuse fatty replacement. BI-RADS CATEGORY: (2) - 2 RECOMMENDATION: (ANNUAL) - Recommend routine annual screening mammography. [id number] 1 year screening LATERALITY: (B)
== END 2021-08-22 13:18 | disposition home or self-care (01) ==
LOC: DI.S 13:17
PROVIDERS: ATTEND Family Medicine
DX: Z12.31 Encounter for screening mammogram for malignant neoplasm of breast (principal); Z80.3 Family history of malignant neoplasm of breast

== ENCOUNTER 2022-08-07 09:54 | Outpatient (CLI) | payer MEDICARE ==
--- NOTE | 2022-08-07 13:42 | XRAY Report ---
PROCEDURE: Shoulder 3 View LT INDICATIONS: PAIN OF LEFT SHOULDER JOINT TECHNIQUE: 3 views of the shoulder were acquired. COMPARISON: None. FINDINGS: Bones: Total left shoulder arthroplasty noted in place. No evidence of fracture or hardware failure. Soft tissues: No suspicious soft tissue calcifications. IMPRESSION: Total left shoulder arthroplasty in good position Reviewed by: Pako Gomes MD on 08/07/2022 12:40 PM [place] Approved by: Pako Gomes MD on 08/07/2022 12:40 PM [place] Station ID: [id number]
--- NOTE | 2022-08-07 15:25 | XRAY Report ---
PROCEDURE: Knee 4 View LT INDICATIONS: PAIN IN LEFT KNEE TECHNIQUE: 4 views of the left knee(s) were acquired. COMPARISON: None. FINDINGS: Bones: Calcification of the origin of the medial collateral ligament noted. Mild medial compartmenta l joint space narrowing. Soft tissues: Small joint effusion. No suspicious soft tissue calcifications. Diffuse small vessel vascular calcification IMPRESSION: Small joint effusion. Calcification of the MCL origin may reflect prior injury Reviewed by: Pako Gomes MD on 08/07/2022 2:24 PM [place] Approved by: Pako Gomes MD on 08/07/2022 2:24 PM [facility] Station ID: [id number]
== END 2022-08-07 09:55 | disposition home or self-care (01) ==
LOC: DI.S 09:54
PROVIDERS: ATTEND Nurse Practitioner Family
DX: M25.512 Pain in left shoulder (principal); Z96.612 Presence of left artificial shoulder joint; M25.862 Other specified joint disorders, left knee; M25.462 Effusion, left knee; M25.562 Pain in left knee

== ENCOUNTER 2023-01-22 14:59 | Outpatient (CLI) | payer MEDICARE ==
--- NOTE | 2023-01-23 12:07 | Mammography Report ---
BILATERAL DIGITAL SCREENING MAMMOGRAM 3D/2D: 01/22/2023 CLINICAL: Routine screening. Family history of breast cancer. Comparison is made to exams dated: 08/22/2021 mammogram, 05/07/2017 mammogram, and 05/11/2013 mammogra m - [facility]. Both breasts are almost entirely fatty (category a/<25% glandular tissue). There are benign calcifications in both breasts. There also is a biopsy clip in the right breast. No significant masses, calcifications, or other findings are seen in either breast. There has been no significant interval change. IMPRESSION: BENIGN There is no mammographic evidence of malignancy. A 1 year screening mammogram is recommended. Based on the Tyrer Cuzick model (a risk assessment model) the patients lifetime risk is 5.4% and her 10 year risk is 3.7%. According to the ACR, ACS, and NCCN guidelines, an annual breast MRI exam alex g with mammogram is recommended if the patients lifetime risk is 20% or greater. This exam was interpreted at Station ID: [id number]. NOTE: For mammograms, a report in lay terms will be sent to the patient. Approximately 15% of breast malignancies will not be visualized mammographically. In the management of a palpable breast mass, a negative mammogram must not discourage biopsy of a clinically suspicious lesion. Electronically Signed By: Natalia simms/wing:01/23/2023 10:10:42 letter sent: No_Letter ACR BI-RADS Category 2: Benign Finding(s) 3342F PARENCHYMAL PATTERN: (F) - The breast(s) demonstrate(s) diffuse fatty replacement. BI-RADS CATEGORY: (2) - 2 Mammogram [id number] 1 year screening LATERALITY: (B)
== END 2023-01-22 15:00 | disposition home or self-care (01) ==
LOC: DI.S 14:59
PROVIDERS: ATTEND Nurse Practitioner Family
DX: Z12.31 Encounter for screening mammogram for malignant neoplasm of breast (principal); Z80.3 Family history of malignant neoplasm of breast